=== PATIENT | male | born 1950 | race Caucasian/White ===

== ENCOUNTER 2019-11-23 08:54 | Outpatient (CLI) | payer OTHER, SELFPAY ==
[2019-11-23 09:13] VITALS: BMI 31.8
--- NOTE | 2019-11-23 09:14 | NMCV_ITS ---
NM osorio perf SPECT r/s* [id number] Deniz Boss Age: 69 Gender: M : 1950 Exam Date: 11/23/2019 09:14 Ordering Phys: Fermin Hewitt MD ([email or web address]) Technologist: ALMAS Cooper Exam Location: [facility] Indications: ATYPICAL CHEST PAIN STRESS TEST Please [facility] IMAGE PROTOCOL Rest/Stress 1 Lexiscan Day Radiopharmaceutical Dose (mCi) Administration Site Administered by Rest: Tc-99m 10.7 IV ALMAS Cooper Sestamibi Stress:Tc-99m 33.0 IV ALMAS Mcclellan Sestamibi Rest: 23-Nov-2019 60 Discovery 630 Stress: 23-Nov-2019 30 Discovery 630 0.4mg Lexiscan. Images obtained in supine and prone position. SPECT RESULTS Technical Quality: Excellent Raw Data Analysis: Normal Image Corrections: No attenuation or motion correction applied Summed Stress Score: 0 Summed Rest Score: 3 Summed Difference Score: 0 PERFUSION FINDINGS Very small areas of decreased tracer uptake were noted in the anterior wall inferior wall regions in the supine position. Fairly uniform myocardial tracer uptake was noted in the prone position. No significant reversibility was noted. FUNCTIONAL RESULTS (calculated via Gated SPECT) Stress Image LV EF (%): 70 Stress EDV (mL):106 TID: 1.06 Stress ESV (mL):32 FUNCTIONAL FINDINGS: Segmental wall motion analysis revealing no gross wall motion abnormalities IMPRESSIONS 1. Myocardial perfusion imaging revealing small areas of inconsistent, fixed perfusion defects in the anterior wall and inferior wall regions, most likely represent attenuation artifacts. 2. Normal LV ejection fraction of 70%. 3. LV wall motion analysis revealing no gross wall motion normalities. 4. Normal LV volume. No significant coronary ischemia, based on the above findings Dr Fermin Hewitt MD [facility] (Electronically Signed) Final Date: 24 November 2019 14:04 S
--- NOTE | 2019-11-23 09:14 | ECG_ITS ---
[facility] Test Date: 2019-11-23 Pat Name: Deniz Boss Department: Room: Gender: Male Document Reviewer: : 1950 Requested By: Fermin Hewitt Order Number: [id number] [id number] MD: Fermin Hewitt M.D. Interpretive Statements NAME OF STUDY: LEXISCAN SESTAMIBI STRESS TEST INDICATION: Chest Pain, PROCEDURE: At the baseline, the EKG revealed normal sinus rhythm with incomplete right bundle branch block pattern. Normal ST-T's.. The baseline blood pressure was 141/90 mm Hg with a heart rate of 61 beats/min. Lexiscan was infused over a period of 20 seconds. A total of 0.4 milligrams of Lexiscan was infused. The stress phase was continued for a total of 5 minutes. Heart rate at the end of the stress phase was 78 with a blood pressure 148/90. The EKG at the peak infusion revealed no significant changes. Sestamibi was injected 20 seconds after the Lexiscan infusion. Blood pressure at the end of the recovery phase was 155/90 with a heart rate of 77 per minute. CONCLUSION: 1. No significant EKG changes with the LexiScan infusion 2. No LexiScan induced chest pain or cardiac arrhythmia 3. Normal blood pressure and heart rate response 4. Sestamibi/sestamibi perfusion scan pending; see separate report. Electronically Signed On 11-29-2019 18:03:35 CDT by Fermin Hewitt M.D. [id number]
[2019-11-23] MEDS: regadenoson 0.4 Mg/5 ml Syringe IVP (11:53)
[2019-11-23 12:00] VITALS: BP 152/85; PULSE 81
== END 2019-11-23 08:55 | disposition home or self-care (01) ==
LOC: CDL 08:55
PROVIDERS: PCP Emergency Medicine Emergency Medical Services; Visit Provider Internal Medicine Cardiovascular Disease
DX: R07.89 Other chest pain (principal)
CPT/HCPCS: 78452; 93017; A9500; J2785

== ENCOUNTER → 2020-03-19 16:05 | Outpatient (BNVA) | payer OTHER, SELFPAY | PROVIDERS: PCP Emergency Medicine Emergency Medical Services; Visit Provider Internal Medicine Cardiovascular Disease | DX: N18.9 Chronic kidney disease, unspecified (principal); I10 Essential (primary) hypertension; R53.83 Other fatigue; F18.10 Inhalant abuse, uncomplicated; R07.89 Other chest pain; Z79.01 Long term (current) use of anticoagulants; Z86.73 Personal history of transient ischemic attack (TIA), and cerebral infarction without residual deficits | CPT/HCPCS: 80053; 84443; 85025 ==

== ENCOUNTER 2023-07-17 18:29 | Emergency (ER) | payer OTHER, SELFPAY ==
[2023-07-17 18:32] VITALS: BP 169/99; PULSE 77; RESP 16; TEMP 36.4; O2SAT 97
--- NOTE | 2023-07-17 18:38 | ED_ITS ---
HPI - Extremity Problem General: Chief complaint: Extremity Injury, Lower Stated complaint: right leg pain Time Seen by Provider: 07/17/23 18:38 Source: patient Mode of arrival: ambulatory Limitations: no limitations History of Present Illness: Patient is a 73-year-old male with a past medical history including HTN, chronic smoking, COPD here for complaints of pain to his right posterior knee and calf. He states symptoms started today. No injury or trauma. He has not noticed any swelling to the extremity. He has not noticed any color/temperature changes, numbness, tingling, loss of sensation, or weakness. Patient is concerned about a DVT. He reports a previous history of PE in 2008. Patient states he was on anticoagulation at one point but no longer takes this. He is not complaining of chest pain, shortness of breath, difficulty breathing. MD Complaint: extremity pain Onset (ago): hour(s) Pain Consistency: constant Location: right and lower extremity Radiation: distal (into calf) Relieving factors: nothing Exacerbating factors: weight bearing Associated symptoms: Reports no associated symptoms; Deny chest pain, fever(s) or rash Context: other (history of PE; not on anticoagulation) Review of Systems Const: Denies: fever(s), chills, body aches, fatigue or malaise Card: Denies: chest pain, palpitations, irregular heart rhythm, edema, lightheadedness, syncope, pre-syncope, dyspnea on exertion or orthopnea Resp: Denies: dyspnea Musc: Reports: extremity pain (R posterior knee into calf); Denies: neck pain, back pain, extremity swelling, joint pain, joint swelling, joint redness, joint warmth, joint stiffness, limited range of motion, muscle cramps, muscle weakness, decrease in muscle mass or loss of height Skin/Breast: Denies: rash Neuro: Denies: numbness in extremities, weakness in extremities or sensory changes PFS ED PFSH: Medical History Fatigue Abuse of smoked substance Old 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, extra occular muscle weakness on the left side Benign essential hypertension with target blood pressure below 140/90 Atypical chest pain COPD (chronic obstructive pulmonary disease) Crohn disease Hypertension 30 years, started taking meds Abdominal hernia Surgical History History of hernia repair Family History Mother CAD (coronary artery disease) Brother CAD (coronary artery disease) Postsurgical cardiac pacemaker in situ Family/Other Cancer Grandmother Dementia Other Hyperlipidemia Hypertension Denies family history of Diabetes Clotting disorder Chronic kidney disease (CKD) Suicide Anesthesia complication Bleeding disorder Lung disease Stroke Social History Smoking and tobacco/nicotine status: current every day tobacco/nicotine user Alcohol intake: never Substance/Drug Use: never Physical Exam Const: COMMON NORMALS: no acute distress, average body habitus, patient oriented x3, no limitations, alert and well nourished Resp: COMMON NORMALS: normal respiratory effort Cardio: COMMON NORMALS: regular rate and regular rhythm RATE: regular rate RHYTHM: regular rhythm Extremity: COMMON NORMALS: normal to inspection, full ROM, capillary refill normal, no joint enlargement, no clubbing, cyanosis or edema and no pedal edema GENERAL: Yes normal exam except as noted RIGHT LOWER EXTREMITY: Yes knee joint and Yes lower leg OTHER: TTP R popliteal fossa and into calf; no distinguishable swelling noted; full ROM of the knee; DP/PT pulses as well as cap refill distally are normal; extremities are equal color and warm to the touch Neuro: COMMON NORMALS: patient oriented x3, moves all extremities, no focal motor deficits and no sensory deficits noted SENSORIUM/ORIENTATION: Yes alert Skin: COMMON NORMALS: no rashes or lesions noted GENERAL SKIN EXAM: no rashes or lesions noted Course Vital Signs: Vital signs: Vital Signs Temperature 97.6 F 07/17/23 18:32 Pulse Rate 74 07/17/23 18:47 Respiratory Rate 14 07/17/23 18:47 Blood Pressure 149/94 07/17/23 18:47 Pulse Oximetry 94 07/17/23 18:47 Oxygen Delivery Me thod Room Air 07/17/23 18:47 MDM - Extremity (Nontraumatic) Medical Decision Making Per US Valente tech, patient's right lower extremity venous ultrasound was negative for DVT. I have no other concerns for emergent etiologies regarding his symptoms. He will be allowed discharge. Recommend follow-up with primary care in 1 to 2 weeks if symptoms do not seem to be improving. Return precautions given. Medical Records I reviewed the patient's medical records. XR interpretation done by ED provider, pending radiology final review Discharge Plan Discharge Patient Disposition: Home Clinical Impression: Pain in right leg Condition: Stable Prescriptions: No Action budesonide 9 mg tablet,delayed and ext.release 9 mg PO DAILY finasteride 5 mg tablet 5 mg PO DAILY cholecalciferol (vitamin D3) 10 mcg (400 unit) capsule 10 mcg PO DAILY azathioprine 50 mg tablet 50 mg PO QID lisinopril 40 mg tablet See Rx Instructions .ROUTE .COMPLEX Qty: 90 3RF Dose Instruction: TAKE 1 TABLET BY MOUTH EVERY DAY Rx Instructions: TAKE 1 TABLET BY MOUTH EVERY DAY Discharge Orders: Discharge ED (Routine); Ordered 07/17/23 Ordered By: Patricia Scherer Referrals: Donnell Wyatt DO [Primary Care Provider] - Activity Restrictions/Additional Instructions: As we discussed your ultrasound was negative for DVT. If pain persist please follow-up with your primary care provider. Coding Level of Care Code ED Analog Design Engineer for Grace Jackson
--- NOTE | 2023-07-17 18:42 | USR_ITS ---
PROCEDURE INFORMATION: Exam: US Duplex Right Lower Extremity Veins, Limited Exam date and time: 07/17/2023 7:02 PM Age: 73 years old Clinical indication: Pain; Leg, lower; Right; Additional info: Posterior knee/calf pain TECHNIQUE: Imaging protocol: Real-time duplex ultrasound of the right extremity with 2-D robledo scale, color Doppler flow and spectral waveform analysis including responses to compression and other maneuvers (when performed) with image documentation. Limited exam was focused on the right lower extremity veins. COMPARISON: No relevant prior studies available. FINDINGS: Right deep veins: Unremarkable. The common femoral, femoral, proximal profunda femoral and popliteal veins are patent without thrombus. Normal Doppler waveforms. Normal compressibility and/or augmentation response. Superficial veins: Unremarkable. Saphenofemoral junction is patent without thrombus. Soft tissues: Unremarkable. US/[place] [id number] IMPRESSION: No evidence of deep vein thrombosis.
[2023-07-17 18:47] VITALS: BP 149/94; PULSE 74; RESP 14; O2SAT 94
[2023-07-17 19:24] VITALS: BP 149/94; PULSE 74; RESP 14; TEMP 36.4; O2SAT 94
== END 2023-07-17 19:25 | disposition home or self-care (01) ==
PROVIDERS: Emergency Provider Physician Assistant; PCP Emergency Medicine Emergency Medical Services
DX: M79.604 Pain in right leg (principal); Z72.0 Tobacco use; Z86.73 Personal history of transient ischemic attack (TIA), and cerebral infarction without residual deficits; I10 Essential (primary) hypertension; J44.9 Chronic obstructive pulmonary disease, unspecified
CPT/HCPCS: 93971; 99284

== ENCOUNTER 2025-05-28 15:02 | Emergency (ER) | payer OTHER, SELFPAY ==
[2025-05-28 15:09] VITALS: BP 158/80; PULSE 75; RESP 18; TEMP 36.4; O2SAT 96
--- NOTE | 2025-05-28 16:09 | XRR_ITS ---
PROCEDURE INFORMATION: Exam: XR Cervical Spine Exam date and time: 05/28/2025 4:14 PM Age: 75 years old Clinical indication: Injury or trauma; Fall; Blunt trauma; Injury date: 2 days ago; Additional info: Fall x2 days, general neck pain TECHNIQUE: Imaging protocol: Radiologic exam of the cervical spine. Views: 2 or 3 views. COMPARISON: No relevant prior studies available. FINDINGS: Bones/joints: Normal. No acute fracture. Normal alignment. Soft tissues: Unremarkable. XR/XR cervical spine 3V* [id number] IMPRESSION: No acute findings.
--- NOTE | 2025-05-28 16:15 | W.ED.NECK ---
Documented by User: SHABANA Krause 05/28/25 17:17 HPI - Neck Pain/Injury General: Chief Complaint: Neck Pain/Injury Stated Complaint: fell- neck pain Time Seen by Provider: 05/28/25 15:24 Source: patient Mode of arrival: ambulatory Limitations: no limitations History of Present Illness: Patient is a 75-year-old male who presents the emergency department complaining of severe neck pain that has been worsening over the past 2 days. Pain started after he fell, he is unable to tell me exactly how he hurt his neck and the fall but just tells me that after the fall he started to notice the pain. States that is diffuse radiates up into the back of his head as well as down his spine but primarily is to his bilateral paracervical muscles. Reports worsening decreased range of motion in the neck, he denies hitting his head or losing conscious with the fall and is refusing c-collar placement with triage. States he has just taken [id number] pain medicine and has applied topical izqs-xca-[id number] treatments with no relief. No visual changes, no fevers, no focal unilateral numbness weakness or tingling in his extremities, no other neurological complaints at this time. Denies history of chronic neck issues. MD complaint: neck pain and other (fall) Onset (ago): day(s) (2) Place: home Severity: severe Duration: progressively worsening Context: fall Associated symptoms: Denies difficulty walking, dizziness, headache(s) or nausea Related Data Home Medications ?Medication ?Instructions ?Recorded ?Confirmed budesonide 9 mg tablet,delayed and 9 mg PO DAILY 08/02/19 extended release cholecalciferol (vitamin D3) 10 10 mcg PO DAILY 10/18/19 mcg (400 unit) capsule finasteride 5 mg tablet 5 mg PO DAILY 10/18/19 azathioprine 50 mg tablet 50 mg PO QID 10/15/20 Previous Rx's ?Medication ?Instructions ?Recorded lisinopril 40 mg tablet See Rx Instructions .Route 10/15/20 .COMPLEX #90 tabs hydrocodone 5 mg-acetaminophen 325 1 tab PO Q8H PRN pain #10 tabs 05/28/25 mg tablet tizanidine 4 mg capsule 4 mg PO Q8H PRN muscle spasticity 05/28/25 #10 caps Allergies Allergy/AdvReac Type Severity Reaction Status Date / Time Sulfa (Sulfonamide Allergy Unknown Verified 05/28/25 15:13 Antibiotics) Review of Systems General: Reports: 10 or more systems reviewed and unremarkable except in HPI and below Const: Reports: other (reports fall); Denies: fever(s) or chills Eyes: Denies: change in vision Card: Denies: chest pain Resp: Denies: dyspnea or productive cough GI: Denies: abdominal pain, nausea, vomiting or diarrhea : Denies: flank pain Musc: Reports: neck pain and limited range of motion (neck); Denies: back pain, extremity pain, extremity swelling, joint pain, joint swelling, joint redness, joint warmth or muscle weakness Skin/Breast: Denies: rash Neuro: Denies: headache(s), numbness in extremities, weakness in extremities, sensory changes, lack of coordination, difficulty walking or dizziness PFSH ED PFSH: Medical History Fatigue Abuse of smoked substance Old 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, extra occular muscle weakness on the left side Benign essential hypertension with target blood pressure below 140/90 Atypical chest pain COPD (chronic obstructive pulmonary disease) Crohn disease Hypertension 30 years, started taking meds Abdominal hernia Surgical History History of hernia repair Family History Mother CAD (coronary artery disease) Brother CAD (coronary artery disease) Postsurgical cardiac pacemaker in situ Family/Other Cancer Grandmother Dementia Other Hyperlipidemia Hypertension Denies family history of Diabetes Clotting disorder Chronic kidney disease (CKD) Suicide Anesthesia complication Bleeding disorder Lung disease Stroke Social History Smoking and tobacco/nicotine status: current every day tobacco/nicotine user Alcohol intake: never Substance/Drug Use: never Physical Exam Const: COMMON NORMALS: patient oriented x3, no limitations, alert and well nourished ORIENTATION/CONSCIOUSNESS: Yes awake OTHER: Appearing uncomfortable secondary to his neck pain HENMT: COMMON NORMALS: normocephalic and atraumatic HEAD & SCALP: normocephalic and atraumatic Neck/C-Spine: OTHER: Limited range of motion secondary to pain. There is diffuse tender to palpation but primarily to the bilateral paracervical muscles with spasming noted. No significant spinous process tenderness to palpation. Normal visual examination. Extremity: COMMON NORMALS: normal to inspection, full ROM, capillary refill normal, no joint enlargement and no clubbing, cyanosis or edema Neuro: COMMON NORMALS: patient oriented x3, moves all extremities, no focal motor deficits and no sensory deficits noted SENSORIUM/ORIENTATION: Yes alert Skin: COMMON NORMALS: no rashes or lesions noted GENERAL SKIN EXAM: no rashes or lesions noted Course Vital Signs: Vital signs: Vital Signs Temperature 97.6 F 05/28/25 15:09 Pulse Rate 76 05/28/25 17:30 Respiratory Rate 18 05/28/25 16:31 Blood Pressure 138/95 05/28/25 17:30 Pulse Oximetry 94 05/28/25 17:30 Oxygen Delivery Me thod Room Air 05/28/25 16:31 MDM - Neck Pain/Injury Medical Decision Making This is a 75-year-old male who presented with 2 days of neck pain and limited range of motion following mechanical fall. Initial concern included cervical fracture, dislocation, ligamentous injury, spinal cord injury, cervical radiculopathy, vertebral artery injury, and infectious etiology such as epidural abscess or meningitis. Cervical spine x-ray obtained in the ED showed no acute bony abnormality, fracture, or malalignment. Neurological exam was intact without focal deficits, weakness, paresthesias, bowel or bladder dysfunction, or gait instability. He was afebrile, hemodynamically stable, and without appreciable spinal tenderness, signs of infection, or red flag symptoms. The patient was treated in the ED with [place], IM Decadron, and IM Norflex with significant clinical improvement, reporting pain decreasing to a 3/10 as opposed to a 10/10 when he arrived, there is also notable improved range of motion. Given the negative imaging, reassuring physical exam, and symptomatic improvement, the presentation is most consistent with cervical muscle strain. Other serious etiologies were considered and felt unlikely based on exam findings, imaging, and clinical response. The patient is stable for discharge she will take p.o. [place] 5 mg as needed for pain, instructions for activity modification, and return precautions for worsening pain, neurological changes, or new symptoms. Patient agrees with this plan at this time. Lab Data Radiology Impressions Cervical Spine X-Ray 05/28/25 16:09 IMPRESSION: No acute findings. All radiology interpretation(s) finalized by discharge Discharge Plan Discharge Patient Disposition: Home Clinical Impression: Strain of neck muscle Qualifiers: Encounter type: initial encounter Qualified Code(s): S16.1XXA - Strain of muscle, fascia and tendon at neck level, initial encounter Condition: Stable Prescriptions: New hydrocodone-acetaminophen 5-325 mg tablet 1 tab PO Q8H PRN (Reason: pain) Qty: 10 0RF tizanidine 4 mg capsule 4 mg PO Q8H PRN (Reason: muscle spasticity) Qty: 10 0RF No Action budesonide 9 mg tablet,delayed and ext.release 9 mg PO DAILY finasteride 5 mg tablet 5 mg PO DAILY cholecalciferol (vitamin D3) 10 mcg (400 unit) capsule 10 mcg PO DAILY azathioprine 50 mg tablet 50 mg PO QID lisinopril 40 mg tablet See Rx Instructions .ROUTE .COMPLEX Qty: 90 3RF Dose Instruction: TAKE 1 TABLET BY MOUTH EVERY DAY Rx Instructions: TAKE 1 TABLET BY MOUTH EVERY DAY Discharge Orders: Discharge ED (Routine); Ordered 05/28/25 Ordered By: Leo Chew Referrals: Yolette Rachel MD [Primary Care Provider, Family Practice] Patient Instructions: Opioid Safety, Pain Management, Patient Portal & [place] Instructions Activity Restrictions/Additional Instructions: Cervical Strain Discharge Instructions Diagnosis: You have been diagnosed with cervical strain (neck muscle strain) from your recent fall. Your X-rays show no broken bones or other serious injuries. Medications: - [place] (hydrocodone-acetaminophen) 5-325 mg: Take as prescribed for breakthrough pain. This is a narcotic pain medication that can cause drowsiness. Do not drive or operate machinery while taking this medication. Do not drink alcohol while taking this medication. - Lfrf-oqi-ixhhuqm pain relief: You may also use acetaminophen (Tylenol) or ibuprofen (Advil, Motrin) as directed on the package for additional pain control, but do not exceed recommended doses and avoid taking additional acetaminophen if you are taking [place]. Pain Relief at Home: - Ice or heat: Apply ice packs for 15-20 minutes at a time during the first 48-72 hours to reduce swelling. After 2-3 days, you may switch to heat (warm towels, heating pad) for 15-20 minutes to help relax muscles. - Rest position: Use a supportive pillow that keeps your neck in a neutral position while sleeping. Avoid sleeping on your stomach. - Gentle movement: Move your neck gently through comfortable ranges of motion several times per day. Do not force movements that cause significant pain. Activity Guidelines: Stay active within your comfort level. Research shows that remaining active and returning to normal activities promotes better recovery than prolonged rest. You should: - Avoid prolonged bed rest: Staying in bed for extended periods can actually slow your recovery. - Return to daily activities gradually: Resume normal activities as tolerated, but avoid heavy lifting (over 10-15 pounds), overhead work, and activities that significantly increase your pain for the first 1-2 weeks. - Avoid sudden movements: Be careful with quick head turns or jerking motions. - Limit cervical collar use: If you were given a collar, use it only for short periods (less than 2 weeks) and primarily for comfort, as prolonged use can weaken neck muscles. Home Exercise Program: Begin gentle exercises once your acute pain improves (usually within a few days). Evidence supports early exercise for neck strain recovery: - Gentle range of motion: Slowly turn your head side to side, tilt ear toward shoulder, and look up and down. Perform 5-10 repetitions, 2-3 times daily. - Shoulder rolls: Roll your shoulders backward in a circular motion 10 times, then forward 10 times. - Posture awareness: Sit and stand with your shoulders back and chin slightly tucked. As pain decreases over the next 1-2 weeks, you may gradually progress to gentle strengthening exercises. Follow-Up Care: - Consider scheduling a follow-up appointment with your primary care doctor in 1-2 weeks to monitor your recovery. - Physical therapy may be beneficial if symptoms persist beyond 2-3 weeks. Return to the Emergency Department or Call Your Doctor Immediately If: - Pain becomes severe or is not controlled with prescribed medications - You develop new or worsening numbness, tingling, or weakness in your arms or hands - You experience difficulty walking or loss of balance - You develop loss of bowel or bladder control - You develop fever, chills, or other signs of infection - Your symptoms significantly worsen or do not improve within 2-3 weeks Expected Recovery: Most people with acute neck strain recover significantly within 2-3 months with appropriate care. Staying active, managing pain appropriately, and performing gentle exercises will help promote your recovery. Print Language: [place] Coding Level of Care Code ED Supervisor Inspection for Chg Fwd Documented by User: Saad Sanz DO 05/28/25 19:11 HPI - Neck Pain/Injury General: Chief Complaint: Neck Pain/Injury Stated Complaint: fell- neck pain Time Seen by Provider: 05/28/25 15:24 Related Data Home Medications ?Medication ?Instructions ?Recorded ?Confirmed budesonide 9 mg tablet,delayed and 9 mg PO DAILY 08/02/19 extended release cholecalciferol (vitamin D3) 10 10 mcg PO DAILY 10/18/19 mcg (400 unit) capsule finasteride 5 mg tablet 5 mg PO DAILY 10/18/19 azathioprine 50 mg tablet 50 mg PO QID 10/15/20 Previous Rx's ?Medication ?Instructions ?Recorded lisinopril 40 mg tablet See Rx Instructions .Route 10/15/20 .COMPLEX #90 tabs hydrocodone 5 mg-acetaminophen 325 1 tab PO Q8H PRN pain #10 tabs 05/28/25 mg tablet tizanidine 4 mg capsule 4 mg PO Q8H PRN muscle spasticity 05/28/25 #10 caps Allergies Allergy/AdvReac Type Severity Reaction Status Date / Time Sulfa (Sulfonamide Allergy Unknown Verified 05/28/25 15:13 Antibiotics) PFS ED PFSH: Medical History Fatigue Abuse of smoked substance Old 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, extra occular muscle weakness on the left side Benign essential hypertension with target blood pressure below 140/90 Atypical chest pain COPD (chronic obstructive pulmonary disease) Crohn disease Hypertension 30 years, started taking meds Abdominal hernia Surgical History History of hernia repair Family History Mother CAD (coronary artery disease) Brother CAD (coronary artery disease) Postsurgical cardiac pacemaker in situ Family/Other Cancer Grandmother Dementia Other Hyperlipidemia Hypertension Denies family history of Diabetes Clotting disorder Chronic kidney disease (CKD) Suicide Anesthesia complication Bleeding disorder Lung disease Stroke Social History Smoking and tobacco/nicotine status: current every day tobacco/nicotine user Alcohol intake: never Substance/Drug Use: never Course Vital Signs: Vital signs: Vital Signs Temperature 97.6 F 05/28/25 15:09 Pulse Rate 76 05/28/25 17:30 Respiratory Rate 18 05/28/25 16:31 Blood Pressure 138/95 05/28/25 17:30 Pulse Oximetry 94 05/28/25 17:30 Oxygen Delivery Me thod Room Air 05/28/25 16:31 MDM - Neck Pain/Injury Medical Decision Making This is a 75-year-old male who presented with 2 days of neck pain and limited range of motion following mechanical fall. Initial concern included cervical fracture, dislocation, ligamentous injury, spinal cord injury, cervical radiculopathy, vertebral artery injury, and infectious etiology such as epidural abscess or meningitis. Cervical spine x-ray obtained in the ED showed no acute bony abnormality, fracture, or malalignment. Neurological exam was intact without focal deficits, weakness, paresthesias, bowel or bladder dysfunction, or gait instability. He was afebrile, hemodynamically stable, and without appreciable spinal tenderness, signs of infection, or red flag symptoms. The patient was treated in the ED with [place], IM Decadron, and IM Norflex with significant clinical improvement, reporting pain decreasing to a 3/10 as opposed to a 10/10 when he arrived, there is also notable improved range of motion. Given the negative imaging, reassuring physical exam, and symptomatic improvement, the presentation is most consistent with cervical muscle strain. Other serious etiologies were considered and felt unlikely based on exam findings, imaging, and clinical response. The patient is stable for discharge she will take p.o. Brunswick 5 mg as needed for pain, instructions for activity modification, and return precautions for worsening pain, neurological changes, or new symptoms. Patient agrees with this plan at this time. Chart reviewed and patient discussed with midlevel. Agree with assessment and plan. Lab Data Radiology Impressions Cervical Spine X-Ray 05/28/25 16:09 IMPRESSION: No acute findings. Discharge Plan Discharge Patient Disposition: Home Clinical Impression: Strain of neck muscle Qualifiers: Encounter type: initial encounter Qualified Code(s): S16.1XXA - Strain of muscle, fascia and tendon at neck level, initial encounter Condition: Stable Prescriptions: New hydrocodone-acetaminophen 5-325 mg tablet 1 tab PO Q8H PRN (Reason: pain) Qty: 10 0RF tizanidine 4 mg capsule 4 mg PO Q8H PRN (Reason: muscle spasticity) Qty: 10 0RF No Action budesonide 9 mg tablet,delayed and ext.release 9 mg PO DAILY finasteride 5 mg tablet 5 mg PO DAILY cholecalciferol (vitamin D3) 10 mcg (400 unit) capsule 10 mcg PO DAILY azathioprine 50 mg tablet 50 mg PO QID lisinopril 40 mg tablet See Rx Instructions .ROUTE .COMPLEX Qty: 90 3RF Dose Instruction: TAKE 1 TABLET BY MOUTH EVERY DAY Rx Instructions: TAKE 1 TABLET BY MOUTH EVERY DAY Discharge Orders: Discharge ED (Routine); Ordered 05/28/25 Ordered By: Leo Chew Referrals: Yolette Rachel MD [Primary Care Provider, [facility]] Patient Instructions: Opioid Safety, Pain Management, Patient Portal & [place] Instructions Activity Restrictions/Additional Instructions: Cervical Strain Discharge Instructions Diagnosis: You have been diagnosed with cervical strain (neck muscle strain) from your recent fall. Your X-rays show no broken bones or other serious injuries. Medications: - [place] (hydrocodone-acetaminophen) 5-325 mg: Take as prescribed for breakthrough pain. This is a narcotic pain medication that can cause drowsiness. Do not drive or operate machinery while taking this medication. Do not drink alcohol while taking this medication. - Vczd-omo-alywsab pain relief: You may also use acetaminophen (Tylenol) or ibuprofen (Advil, Motrin) as directed on the package for additional pain control, but do not exceed recommended doses and avoid taking additional acetaminophen if you are taking [place]. Pain Relief at Home: - Ice or heat: Apply ice packs for 15-20 minutes at a time during the first 48-72 hours to reduce swelling. After 2-3 days, you may switch to heat (warm towels, heating pad) for 15-20 minutes to help relax muscles. - Rest position: Use a supportive pillow that keeps your neck in a neutral position while sleeping. Avoid sleeping on your stomach. - Gentle movement: Move your neck gently through comfortable ranges of motion several times per day. Do not force movements that cause significant pain. Activity Guidelines: Stay active within your comfort level. Research shows that remaining active and returning to normal activities promotes better recovery than prolonged rest. You should: - Avoid prolonged bed rest: Staying in bed for extended periods can actually slow your recovery. - Return to daily activities gradually: Resume normal activities as tolerated, but avoid heavy lifting (over 10-15 pounds), overhead work, and activities that significantly increase your pain for the first 1-2 weeks. - Avoid sudden movements: Be careful with quick head turns or jerking motions. - Limit cervical collar use: If you were given a collar, use it only for short periods (less than 2 weeks) and primarily for comfort, as prolonged use can weaken neck muscles. Home Exercise Program: Begin gentle exercises once your acute pain improves (usually within a few days). Evidence supports early exercise for neck strain recovery: - Gentle range of motion: Slowly turn your head side to side, tilt ear toward shoulder, and look up and down. Perform 5-10 repetitions, 2-3 times daily. - Shoulder rolls: Roll your shoulders backward in a circular motion 10 times, then forward 10 times. - Posture awareness: Sit and stand with your shoulders back and chin slightly tucked. As pain decreases over the next 1-2 weeks, you may gradually progress to gentle strengthening exercises. Follow-Up Care: - Consider scheduling a follow-up appointment with your primary care doctor in 1-2 weeks to monitor your recovery. - Physical therapy may be beneficial if symptoms persist beyond 2-3 weeks. Return to the Emergency Department or Call Your Doctor Immediately If: - Pain becomes severe or is not controlled with prescribed medications - You develop new or worsening numbness, tingling, or weakness in your arms or hands - You experience difficulty walking or loss of balance - You develop loss of bowel or bladder control - You develop fever, chills, or other signs of infection - Your symptoms significantly worsen or do not improve within 2-3 weeks Expected Recovery: Most people with acute neck strain recover significantly within 2-3 months with appropriate care. Staying active, managing pain appropriately, and performing gentle exercises will help promote your recovery. Print Language: [place] Coding Level of Care Code ED Supervisor Inspection for Grace Jackson
[2025-05-28] MEDS: HYDROcodone-acetaminophen 7.5-325 mg Tablet 1 TAB PO (16:23)
[2025-05-28] MEDS: orphenadrine 30 mg/mL Inj 2 mL 60 MG IM (16:23)
[2025-05-28 16:31] VITALS: BP 151/94; PULSE 76; RESP 18; O2SAT 94
[2025-05-28 17:30] VITALS: BP 138/95; PULSE 76; O2SAT 94
== END 2025-05-28 17:31 | disposition home or self-care (01) ==
PROVIDERS: Emergency Provider Physician Assistant; PCP Family Medicine
DX: S16.1XXA Strain of muscle, fascia and tendon at neck level, initial encounter (principal); J44.9 Chronic obstructive pulmonary disease, unspecified; Z72.0 Tobacco use; I10 Essential (primary) hypertension; Z86.73 Personal history of transient ischemic attack (TIA), and cerebral infarction without residual deficits; W19.XXXA Unspecified fall, initial encounter
CPT/HCPCS: 72040; 96372; 99284; J1100; J2360; J9999